=== PATIENT | female | born 1970 | race Caucasian/White ===

== ENCOUNTER 2025-05-12 18:52 | Emergency (ER) | payer MEDICAID ==
[2025-05-12] MEDS: EPINEPHrine 0.3 MG/0.3 ML Pen Autoinjector IM ONE (18:55)
[2025-05-12] MEDS: methylPREDNISolone Sodium Succinate 125 MG/2 ML SDV IVPUSH ONE (19:05)
[2025-05-12] MEDS: diphenhydrAMINE 50 MG/ML SDV IVPUSH ONE (19:07)
[2025-05-12 19:24] LABS: BASE EXCESS VENOUS 2.4 mm/L (-2-3); BASOPHILS ABSOLUTE AUTO 0.05 K/uL (0.02-0.10); BASOPHILS PERCENT AUTO 0.5 % (0.0-0.5); BICARBONATE,VENOUS 27.3 mmol/L (23.0-28.0); EOSINOPHILS ABSOLUTE AUTO 0.10 K/uL (0.04-0.40); EOSINOPHILS PERCENT AUTO 0.9 % (1.0-5.0); LYMPHOCYTES ABSOLUTE AUTO 3.46 K/uL (1.50-4.00); LYMPHOCYTES PERCENT AUTO 32.2 % (20.0-40.0); MEAN PLATELET VOLUME 9.2 fL (6.0-10.0); MONOCYTES ABSOLUTE AUTO 0.70 K/uL (0.20-0.80); MONOCYTES PERCENT AUTO 6.5 % (3.0-10.0); NEUTROPHILS ABSOLUTE AUTO 6.44 K/uL (2.00-7.50); NEUTROPHILS PERCENT AUTO 59.9 % (45.0-70.0); PCO2 VENOUS 45.1 mm/Hg (41-51); PH,VENOUS 7.39 (7.31-7.41); PLATELET COUNT,PLT 365 K/uL (150-500); RED BLOOD CELL COUNT 4.47 M/uL (3.80-5.80); RED CELL DISTRIBUTION WIDTH 13.4 % (11.0-16.0); WHITE BLOOD CELL COUNT,WBC 10.8 K/uL (4.0-11.0)
[2025-05-12 19:39] LABS: A/G RATIO 1.5 (0.8-2.0); ALANINE AMINOTRANSFERASE,ALT 18 U/L (12-78); ASPARTATE AMNIOTRANSFERASE,AST 9 U/L (15-37); BILIRUBIN TOTAL 0.5 mg/dL (0.0-1.0); BLOOD UREA NITROGEN,BUN 11 mg/dL (8-26); CARBON DIOXIDE,CO2 26.7 mmol/L (21.0-32.0); CHLORIDE,CL 104 mmol/L (98-107); CREATININE 0.81 mg/dL (0.55-1.02); ESTIMATED GFR 85 mL/min (>60); GLUCOSE RANDOM 111 mg/dL (74-100); POTASSIUM,K 3.6 mmol/L (3.5-5.1); PROTEIN TOTAL,TP 7.1 g/dL (6.4-8.2); SODIUM,NA 143 mmol/L (136-145)
[2025-05-12] MEDS: methylPREDNISolone Sodium Succinate 125 MG/2 ML SDV ONE (20:04)
[2025-05-12] MEDS: diphenhydrAMINE 50 MG/ML SDV ONE (20:04)
[2025-05-12] MEDS: LORazepam 2 MG/ML SDV IVPUSH ONE ×2 (20:45→21:25)
== END 2025-05-12 21:45 ==
LOC: LB.ED 18:52
DX: J98.8 Other specified respiratory disorders (principal); F17.200 Nicotine dependence, unspecified, uncomplicated; Z88.0 Allergy status to penicillin; Z91.030 Bee allergy status; Z79.899 Other long term (current) drug therapy; Z86.16 Personal history of COVID-19
CPT/HCPCS: 36415; 70360; 71045; 80053; 82803; 85025; 86140; 96361; 96372; 96374; 96375; 99285; A0425; A0428; A9270; J1200; J2060; J2919; J7040